=== PATIENT | female | born 1960 | race Caucasian/White ===

== ENCOUNTER 2017-02-20 17:54 | Emergency (ER) | payer BC ==
[2017-02-20] MEDS ORDERED: Sodium Chloride 0.9% 1000 ML 1,000 ML IV STA (18:26)
--- NOTE | 2017-02-20 18:30 | ERPHSYRPT ---
- History of Present Illness Historian: patient Exam Limitations: no limitations Patient Subjective Stated Complaint: lt abd pain intermittent since last monday Triage Nursing Assessment: intermittent pain since last monday-states she feels like it is worse after eating--feels gas-like in nature and is relieved with passing gas. denies n/v. normal bm this morning. pain started after eating at 1500 today and hasnt let up. skin warm and dry Timing/Duration: day(s) (since mon.) Activities at Onset: none Quality: cramping, stabbing Abdominal Pain Onset Location: LLQ Pain Radiation: flank Severity of Pain-Max: mild Severity of Pain-Current: moderate Modifying Factors: Improves With: nothing Associated Symptoms: denies symptoms Previous symptoms: no prior history Hx Tetanus, Diphtheria Vaccination/Date Given: Yes Hx Influenza Vaccination/Date Given: Yes Hx Pneumococcal Vaccination/Date Given: No Immunizations Up to Date: Yes <JAMAR CAT - Last Filed: 02/20/17 18:51> <OZ COX - Last Filed: 02/20/17 20:45> - History of Present Illness Time Seen by Provider: 02/20/17 18:27 Physician History: 56-year-old female without any significant past medical history started having a left lower quadrant abdominal pain which was radiating to her left CVA area. Pain was intermittent cramping and shooting pain . She was complaining of some low-grade fever with chills today morning. She is denying any nausea, vomiting , diarrhea or constipation. She is also denying any blood in her stool or urine on urinary frequency. (JAMAR CAT) Allergies/Adverse Reactions: amoxicillin Allergy (Verified 02/20/17 18:12) codeine Allergy (Verified 02/20/17 18:12) Home Medications: Estradiol 1 mg [Estrace 1 mg] 1 mg PO DAILY 02/20/17 [History] Lorazepam 0.5 mg [Ativan 0.5 MG] 0.5 mg PO TID 02/20/17 [History] PANTOPRAZOLE 40 mg Tablet [Protonix 40MG Tablet] 40 mg PO DAILY 02/20/17 [ History] - Review of Systems Constitutional: No Fever, No Chills Eyes: No Symptoms Ears, Nose, & Throat: No Symptoms Respiratory: No Cough, No Dyspnea Cardiac: No Chest Pain, No Edema, No Syncope Abdominal/Gastrointestinal: Abdominal Pain (LLQ), No Nausea, No Vomiting, No Diarrhea Genitourinary Symptoms: Flank Pain, No Dysuria, No Frequency, No Hematuria, No Hesitancy, No Incontinence, No Urgency, No Urinary Retention Musculoskeletal: No Back Pain, No Neck Pain Skin: No Rash Neurological: No Dizziness, No Focal Weakness, No Sensory Changes Psychological: No Symptoms Endocrine: No Symptoms All Other Systems: Reviewed and Negative <EMORY - Last Filed: 02/20/17 18:51> - Past Medical History Pertinent Past Medical History: Yes Psycho-Social History: Anxiety, Depression - Past Surgical History Past Surgical History: Yes Female Surgical History: Hysterectomy, Tubal Ligation - Social History Smoking Status: Never smoker Exposure to second hand smoke: No Drug Use: none Patient Lives Alone: No <EMORY - Filed: 02/20/17 18:51> - Physical Exam General Appearance: no apparent distress, alert Eye Exam: PERRL/EOMI, eyes nml inspection Ears, Nose, Throat Exam: normal ENT inspection, pharynx normal, moist mucous membranes Neck Exam: normal inspection, non-tender, supple, full range of motion Respiratory Exam: normal breath sounds, lungs clear, No respiratory distress Cardiovascular Exam: regular rate/rhythm, normal heart sounds Gastrointestinal/Abdomen Exam: soft, tenderness (LLQ), No mass Back Exam: normal inspection, normal range of motion, No CVA tenderness, No vertebral tenderness Extremity Exam: normal inspection, normal range of motion, pelvis stable Neurologic Exam: alert, oriented x 3, cooperative, normal mood/affect, nml cerebellar function, sensation nml, No motor deficits Skin Exam: normal color, warm, dry SpO2: 99 Oxygen Delivery: Room Air <EMORY Filed: 02/20/17 18:51> - Nursing Vital Signs Nursing Vital Signs: Initial Vital Signs Temperature 97.5 F 02/20/17 18:05 Pulse Rate 94 H 02/20/17 18:05 Respiratory Rate 18 02/20/17 18:05 Blood Pressure 140/89 02/20/17 18:05 O2 Sat by Pulse Oximetry 99 02/20/17 18:05 Pain Scale Pain Intensity 5 - Course Nursing assessment & vital signs reviewed: Yes <EMORY,JAMAR - Last Filed: 02/20/17 18:51> Ordered Tests: Active Orders 24 hr Category Date Time Status IV Insertion STAT Care 02/20/17 18:30 Active ABDOMEN AND PELVIS W CONTRAST [CT] Stat Exams 02/20/17 19:30 Taken AMYLASE Stat Lab 02/20/17 18:52 Completed CBC W DIFF Stat Lab 02/20/17 18:52 Completed CMP Stat Lab 02/20/17 18:52 Completed CULTURE,URINE Stat Lab 02/20/17 18:59 Received LIPASE Stat Lab 02/20/17 18:52 Completed Lactic Acid Stat Lab 02/20/17 20:30 Completed UA W/ MICROSCOPIC Stat Lab 02/20/17 18:59 Completed Medication Summary Discontinued Medications Generic Name Dose Route Start Last Admin Trade Name Freq PRN Reason Stop Dose Admin Hydromorphone HCl 0.5 mg 02/20/17 19:30 02/20/17 19:35 Hydromorphone 1 Mg/Ml Ampule IV 02/20/17 19:31 0.5 mg STAT ONE Administration Hydromorphone HCl Confirm 02/20/17 19:34 Hydromorphone 1 Mg/Ml Ampule Administered 02/20/17 19:35 Dose 1 mg .ROUTE .STK-MED ONE Sodium Chloride 1,000 mls @ 999 mls/hr 02/20/17 18:26 02/20/17 18:45 Sodium Chloride 0.9% 1000 Ml IV 02/20/17 19:26 999 mls/hr .Q1H1M STA Administration Sodium Chloride Confirm 02/20/17 18:44 Sodium Chloride 0.9% 1000 Ml Administered 02/20/17 18:45 Dose 1,000 mls @ ud .ROUTE .STK-MED ONE Lab/Rad Data: Laboratory Result Diagrams 02/20/17 18:52 02/20/17 18:52 Laboratory Results 02/20/17 02/20/17 02/20/17 Range/Units 20:30 18:59 18:52 WBC (4.0-10.5) K/mm3 RBC (4.1-5.4) M/mm3 Hgb (12.0-16.0) gm/dl Hct (35-47) % MCV (78-100) fl MCH (26-32) pg MCHC (32-36) g/dl RDW (11.5-14.0) % Plt Count (150-450) K/mm3 MPV (6-9.5) fl Gran % (36.0-66.0) % Lymphocytes % (24.0-44.0) % Monocytes % (0.0-12.0) % Eosinophils % (0.00-5.0) % Basophils % (0.0-0.4) % Basophils # (0-0.4) Sodium 142 (136-145) mEq/L Potassium 3.7 (3.5-5.1) mEq/L Chloride 106 (98-107) mEq/L Carbon Dioxide 26.1 (21-32) mEq/L Anion Gap 13.4 (5-15) MEQ/L BUN 17 (9-20) mg/dL Creatinine 0.86 (0.55-1.30) mg/dl Estimated GFR > 60 ML/MIN Glucose 148 H (70-110) MG/DL Lactic Acid 0.9 (0.4-2.0) Calcium 8.7 (8.5-10.1) mg/dL Total Bilirubin 0.10 L (0.2-1.0) mg/dL AST 16 (15-37) U/L ALT 24 (12-78) U/L Alkaline Phosphatase 70 (46-116) U/L Serum Total Protein 7.0 (6.4-8.2) gm/dL Albumin 3.2 L (3.4-5.0) g/dL Amylase 58 (25-115) U/L Lipase 313 (73-393) U/L Ur Collection Type VOID Urine Color YELLOW (YELLOW) Urine Appearance HAZY (CLEAR) Urine pH 7.0 (5-6) Ur Specific Pitman 1.010 (1.005-1.025) Urine Protein NEGATIVE (Negative) Urine Ketones NEGATIVE (NEGATIVE) Urine Blood 50 (0-5) Ernst/ul Urine Nitrite NEGATIVE (NEGATIVE) Urine Bilirubin NEGATIVE (NEGATIVE) Urine Urobilinogen NORMAL (0-1) mg/dL Ur Leukocyte Esterase NEGATIVE (NEGATIVE) Urine Microscopic RBC 5-10 (0-2) /HPF Urine Microscopic WBC 0-2 (0-5) /HPF Ur Epithelial Cells MODERATE (FEW) /HPF Urine Bacteria MODERATE (NEGATIVE) /HPF Urine Mucus SLIGHT (NEGATIVE) /HPF Urine Culture Reflexed YES (NO) Urine Glucose NEGATIVE (NEGATIVE) mg/dL Specimen Received 02/20/17 1850 02/20/17 Range/Units 18:52 WBC 7.6 (4.0-10.5) K/mm3 RBC 4.25 (4.1-5.4) M/mm3 Hgb 12.7 (12.0-16.0) gm/dl Hct 39.9 (35-47) % MCV 93.9 (78-100) fl MCH 29.9 (26-32) pg MCHC 31.8 L (32-36) g/dl RDW 13.6 (11.5-14.0) % Plt Count 310 (150-450) K/mm3 MPV 10.0 H (6-9.5) fl Gran % 61.6 (36.0-66.0) % Lymphocytes % 29.0 (24.0-44.0) % Monocytes % 6.9 (0.0-12.0) % Eosinophils % 2.2 (0.00-5.0) % Basophils % 0.3 (0.0-0.4) % Basophils # 0.02 (0-0.4) Sodium (136-145) mEq/L Potassium (3.5-5.1) mEq/L Chloride (98-107) mEq/L Carbon Dioxide (21-32) mEq/L Anion Gap (5-15) MEQ/L BUN (9-20) mg/dL Creatinine (0.55-1.30) mg/dl Estimated GFR ML/MIN Glucose (70-110) MG/DL Lactic Acid (0.4-2.0) Calcium (8.5-10.1) mg/dL Total Bilirubin (0.2-1.0) mg/dL AST (15-37) U/L ALT (12-78) U/L Alkaline Phosphatase (46-116) U/L Serum Total Protein (6.4-8.2) gm/dL Albumin (3.4-5.0) g/dL Amylase (25-115) U/L Lipase (73-393) U/L Ur Collection Type Urine Color (YELLOW) Urine Appearance (CLEAR) Urine pH (5-6) Ur Specific Pitman (1.005-1.025) Urine Protein (Negative) Urine Ketones (NEGATIVE) Urine Blood (0-5) Ernst/ul Urine Nitrite (NEGATIVE) Urine Bilirubin (NEGATIVE) Urine Urobilinogen (0-1) mg/dL Ur Leukocyte Esterase (NEGATIVE) Urine Microscopic RBC (0-2) /HPF Urine Microscopic WBC (0-5) /HPF Ur Epithelial Cells (FEW) /HPF Urine Bacteria (NEGATIVE) /HPF Urine Mucus (NEGATIVE) /HPF Urine Culture Reflexed (NO) Urine Glucose (NEGATIVE) mg/dL Specimen Received <JAMAR CAT - Last Filed: 02/20/17 18:51> - Progress Counseled pt/family regarding: lab results, diagnosis, need for follow-up, rad results <OZ COX - Last Filed: 02/20/17 20:45> - Progress Progress Note: 02/20/17 19:39 Pt initially seen per Dr Cat. She has prior hysterectomy and BTL. She has off and on abd pain in LLQ for one week. Works at care home. Low grade fever. ALL: amoxil, codiene. PE: LLQ mildly tender with some guarding, no mass, nondistended. Cor reg. Lungs clear. Will get CT to assess for renal stone disease vs diverticulitis. 02/20/17 20:41 CT shows sigmoid diverticulitis without abscess or perforation. Labs reassuring. LActic pending. She agrees for OP management. Will Rx levaquin and flagyl. Discussed no alcohol. Discussed warnings for quinolones. She can not take zithromax or PCN so this seems most reasonable. (OZ COX) <JAMAR CAT - Last Filed: 02/20/17 18:51> - Departure Time of Disposition: 20:42 Departure Disposition: Home Critical Care Time: No <OZ COX - Last Filed: 02/20/17 20:45> - Departure Clinical Impression: Diverticulitis large intestine Qualifiers: Diverticulitis bleeding: without bleeding Diverticulitis complication: without perforation or abscess Qualified Code(s): K57.32 - Diverticulitis of large intestine without perforation or abscess without bleeding Condition: Stable Referrals: LEE ARMENTA MD [Primary Care Provider] - Instructions: Abdominal Pain-Adult, Diverticulitis Additional Instructions: ABDOMINAL PAIN 1. There are several different causes for abdominal pain, some of which may not be able to be identified on initial examination. 2. The important thing to remember is that bodily functions can change in a short period of time. If you notice any of the following symptoms, return to the emergency department or consult your doctor immediately: A. Worsening pain or no improvement in the next 12 hours. B. Increasing, severe abdominal pain C. Blood in stool D. Black stools E. Persistent vomiting F. Fever or chills or other symptoms Rx flagyl twice a day to [facility] Rx levaquin daily to [facility] Diet with no nuts, seeds, berries, hulls. Soft and bland diet for now. Recheck with Dr Armenta in 2-3 days. Return for fever, worsened pain, passing blood, vomiting or concerns. Tylenol as directed for discomfort. Prescriptions: Levofloxacin [Levaquin] 1 tab PO DAILY #6 tablet Metronidazole 500 mg [Flagyl 500 MG] 500 mg PO BID #14 tablet
[2017-02-20] MEDS ORDERED: Sodium Chloride 0.9% 1000 ML 1,000 ML ONE (18:44)
[2017-02-20 18:59] LABS: BASOPHIL % 0.3 % (0.0-0.4); Eosinophil % 2.2 % (0.00-5.0); Granulocytes % 61.6 % (36.0-66.0); Mean Cell Volume 93.9 fl (78-100); Mean Corpuscular Hemoglobin 29.9 pg (26-32); Monocytes % 6.9 % (0.0-12.0); Platelet Count 310 K/mm3 (150-450); Red Blood Count 4.25 M/mm3 (4.1-5.4); Red Cell Distribution Width 13.6 % (11.5-14.0); White Blood Count 7.6 K/mm3 (4.0-10.5)
[2017-02-20] MEDS ORDERED: Hydromorphone 1 mg/ml Ampule IV ONE (19:30)
[2017-02-20 19:32] LABS: ALBUMIN 3.2 g/dL (3.4-5.0); ALKALINE PHOSPHATASE 70 U/L (46-116); ANION GAP 13.4 MEQ/L (5-15); BLOOD UREA NITROGEN 17 mg/dL (9-20); CHLORIDE 106 mEq/L (98-107); Carbon Dioxide 26.1 mEq/L (21-32); Glucose 148 MG/DL (70-110); LIPASE 313 U/L (73-393); Potassium 3.7 mEq/L (3.5-5.1); SGOT/AST 16 U/L (15-37); SGPT/ALT 24 U/L (12-78); SODIUM 142 mEq/L (136-145)
[2017-02-20] MEDS ORDERED: Hydromorphone 1 mg/ml Ampule ONE (19:34)
[2017-02-20 19:56] VITALS: BP 126/50; PULSE 92; O2SAT 97
[2017-02-20 20:05] LABS: Collection Type VOID
[2017-02-20 20:06] LABS: Bilirubin NEGATIVE (NEGATIVE); Blood 50 Ery/ul (0-5); COMPLETE URINE MICROSCOPIC? YES; Glucose NEGATIVE (NEGATIVE); Leukocyte Esterase NEGATIVE (NEGATIVE)
[2017-02-20 20:07] LABS: ADD URINE CULTURE? YES (NO); Bacteria MODERATE /HPF (NEGATIVE); Epithelial Cells MODERATE /HPF (FEW); Mucus SLIGHT /HPF (NEGATIVE); WBC 0-2 /HPF (0-5)
[2017-02-20] MEDS ORDERED: Levofloxacin 500 MG Tablet PO ONE (20:40)
[2017-02-20] MEDS ORDERED: Flagyl 500 MG PO ONE (20:40)
[2017-02-20] MEDS ORDERED: Levofloxacin 250MG Tablet PO ONE (20:40)
[2017-02-20] MEDS ORDERED: Levofloxacin 250MG Tablet ONE (20:51)
[2017-02-20] MEDS ORDERED: Levofloxacin 500 MG Tablet ONE (20:51)
[2017-02-20] MEDS ORDERED: Flagyl 500 MG ONE (20:51)
--- NOTE | 2017-02-21 08:42 | XRAY ---
Indication: Left lower quadrant pain 1 week. Multiple contiguous axial images obtained through the abdomen and pelvis using 80 cc Isovue 370 contrast only. Comparison: None Lung bases demonstrates scattered bibasilar atelectasis/scarring. No infiltrate, consolidation, or effusion. Heart is not enlarged. Moderate sized hiatal hernia with partial intrathoracic stomach. Noncontrasted stomach and bowel loops appear nonobstructed. Mild diffuse scattered colonic fecal debris throughout. Normal appendix. Minimal scattered colonic diverticulosis. At the junction of the descending and sigmoid, there is mild pericolonic stranding favoring diverticulitis. No free fluid/air. Previous hysterectomy. 1.5 cm right lobe hepatic cyst. Remaining liver, gallbladder, pancreas, spleen, adrenal glands, kidneys, ureters, bladder, and aorta appear normal in CT appearance and attenuation. No pathologic retroperitoneal lymphadenopathy. Osseous structures intact with lumbosacral junction degenerative disc disease. Impression: 1. Scattered colonic diverticulosis with mild diverticulitis at the junction of the descending/sigmoid. 2. Incidental fecal stasis, hiatal hernia, and hepatic cyst. Comment: Preliminary interpretation was made by [facility]. No discrepancy. CTDI 17.22
== END 2017-02-20 20:58 | disposition home or self-care (01) ==
LOC: ED 17:54
DX: K57.32 Diverticulitis of large intestine without perforation or abscess without bleeding (principal); R10.32 Left lower quadrant pain; Z79.899 Other long term (current) drug therapy
CPT/HCPCS: 36000; 36415; 74177; 80053; 81000; 82150; 83605; 83690; 85025; 87086; 96360; 96374; 99284; J1170; A9270-GY

== ENCOUNTER 2017-04-13 05:53 | Day surgery (SDC) | payer BC ==
[2017-04-13] MEDS ORDERED: Versed 2 MG/2 ML Injection IV ONE (05:54)
[2017-04-13] MEDS ORDERED: DIPRIVAN 200 MG/20 ML IV ONE (05:54)
[2017-04-13] MEDS ORDERED: Lactated Ringers 1,000 ML IV SCH (06:30)
[2017-04-13 09:27] VITALS: PULSE 70; O2SAT 95
[2017-04-13 09:29] VITALS: BP 132/90
--- NOTE | 2017-04-13 12:00 | OP ---
SURGERY DATE/TIME: 04/13/2017 0700 PREOPERATIVE DIAGNOSIS: Screening colonoscopy. POSTOPERATIVE DIAGNOSIS: Scattered diverticulosis. PROCEDURE: Colonoscopy. SURGEON: Jose Armenta M.D. ANESTHESIA: MAC by Young Puentes CRNA. ESTIMATED BLOOD LOSS: None. SPECIMENS: None. DESCRIPTION OF PROCEDURE: After informed written consent was obtained, the patient was taken to the endoscopy suite. She underwent monitored anesthesia and a digital rectal exam showed normal sphincter tone and no internal lesions. The scope was inserted into the rectum and sequentially the entire colonic mucosa was traversed. The level of cecum was reached and verified with direct visualization of ileocecal valve. Upon withdrawal careful mucosal inspection revealed scattered diverticula but no other lesions or abnormalities. Prep was noted to be good. Prior to withdrawal retroflexion was performed and showed no obvious internal lesions. The scope was removed and the patient was transferred to the recovery room in good condition.
== END 2017-04-13 08:15 | disposition home or self-care (01) ==
LOC: SDC 05:53
PROVIDERS: ATTEND Family Medicine
PROC: 0DJD8ZZ Inspection of Lower Intestinal Tract, Via Natural or Artificial Opening Endoscopic (ICD-10-PCS; principal; 2017-04-13)
DX: Z12.11 Encounter for screening for malignant neoplasm of colon (principal); K57.90 Diverticulosis of intestine, part unspecified, without perforation or abscess without bleeding
CPT/HCPCS: 00812; J2250; J2704

== ENCOUNTER 2023-03-13 10:06 | Day surgery (SDC) | payer BC ==
--- NOTE | 2023-03-13 09:28 | HP ---
DATE OF SURGERY: 03/13/2023 HISTORY OF PRESENT ILLNESS: The patient is a 62-year-old with right upper quadrant pain and shoulder, some nausea and vomiting. Ultrasound showed some gallstones and some wall thickening. PAST MEDICAL HISTORY: Hypertension, reflux, anxiety, depression, hyperlipidemia, heartburn. PAST SURGICAL HISTORY: Hysterectomy and tubal in the past. MEDICATIONS: Famotidine, Fenofibrate, fluoxetine, losartan, estradiol, omeprazole. ALLERGIES: AMOXICILLIN. CODEINE. AZITHROMYCIN. CITALOPRAM. LISINOPRIL. METRONIDAZOLE. SULFA. SULFAMETHOXAZOLE. TRIMETHOPRIM. FAMILY HISTORY: Negative in regards to this problem. SOCIAL HISTORY: No smoking or alcohol abuse. REVIEW OF SYSTEMS: Twelve systems reviewed pertinent for as noted above. No chest pain or palpitations. Other systems negative or noncontributory as above and per preadmission questionnaire. PHYSICAL EXAMINATION: Height 5'1". BMI 30.61. GENERAL: No acute distress. HEENT: Sclerae nonicteric. EOMI. Oral mucous membranes moist. NECK: No JVD. CHEST: Equal excursion, nonlabored breathing. CVS: Regular rate and rhythm. ABDOMEN: Soft, some mild tenderness lower quadrant. No peritoneal signs. EXTREMITIES: No cyanosis or edema. NEURO: Alert, oriented, moving extremities symmetrically. PSYCH: Appropriate mood and affect. SKIN: Dry. IMPRESSION: Acute exacerbation chronic cholecystitis, symptomatic cholelithiasis. I recommend cholecystectomy. Risks and benefits explained in detail including bleeding or infection, risk of trocar injury or hernia, risk of bile leak, bile duct injury, retained stone or sludge possibly requiring further procedure either open or ERCP, general risk of anesthesia, deep venous thrombosis, pulmonary embolism, pneumonia, perioperative risk of aches, pains, bloating, constipation and/or loose stools possibly even chronic in nature and possibly no improvement in preoperative symptoms possibly requiring further work up, studies, endoscopies, other studies or referrals. Will proceed with laparoscopic cholecystectomy possible open as an outpatient. Liver function tests are improved. Will proceed with laparoscopic cholecystectomy possible open as an outpatient. Otherwise, continue medication for depression, reflux, hypertension and lipids as an outpatient.
[2023-03-13] MEDS ORDERED: Lactated Ringers 1,000 ML IV ONE ×2 (10:20→13:04)
[2023-03-13] MEDS ORDERED: CLINDAMYCIN-D5W 900 MG/50 ML*** 900 MG/50 ML BAG IV ONE (10:20)
[2023-03-13] MEDS ORDERED: CLINDAMYCIN-D5W 900 MG/50 ML*** 900 MG/50 ML BAG IV SCH (10:30)
[2023-03-13] MEDS ORDERED: Lactated Ringers 1,000 ML IV SCH (10:30)
[2023-03-13 10:38] VITALS: RESP 18
[2023-03-13] MEDS ORDERED: Sensorcaine 0.25% 10 ML ONE (12:17)
[2023-03-13] MEDS ORDERED: DIPRIVAN 200 MG/20 ML IV ONE (12:36)
[2023-03-13] MEDS ORDERED: Versed 2 MG/2 ML Injection ONE (12:36)
[2023-03-13] MEDS ORDERED: Zemuron 100 MG/10 ML ONE ×2 (12:36→13:30)
[2023-03-13] MEDS ORDERED: SUBLIMAZE 100 MCG/2 ML ONE ×2 (12:36→13:44)
[2023-03-13] MEDS ORDERED: BRIDION 200MG/2ML IV ONE (13:40)
[2023-03-13 14:38] VITALS: TEMP 98.9
[2023-03-13 14:45] VITALS: BP 137/74; PULSE 88; O2SAT 96
--- NOTE | 2023-03-13 14:57 | OP ---
SURGERY DATE/TIME: 03/13/2023 1240 PREOPERATIVE DIAGNOSIS: Acute exacerbation of chronic cholecystitis, symptomatic cholelithiasis. POSTOPERATIVE DIAGNOSIS: Acute exacerbation of chronic cholecystitis, symptomatic cholelithiasis. PROCEDURE: Laparoscopic cholecystectomy. SURGEON: Dr. Codey Russ. ANESTHESIA: General. ESTIMATED BLOOD LOSS: Minimal. INDICATIONS: As noted above. Risks and benefits explained in detail but not limited to and consent obtained. DESCRIPTION OF PROCEDURE AND FINDINGS: The patient was taken to the operating room. General anesthesia induced. Abdomen prepped and draped in usual sterile fashion. A transverse incision made in the supraumbilical area. Fascia grasped, pulled upward. Veress needle inserted and tested with saline. Pneumoperitoneum accomplished insufflating opening pressure of 0-15. An 11 mm bladeless port and camera were inserted without difficulty followed by two - 5 mm right upper quadrant ports and initially a 5 mm epigastric port. There is no evidence of any intraabdominal injury secondary to trocar insertion. The gallbladder is quite chronically inflamed and gallstones. Dissected posterior, lateral to anterior fashion slowly and carefully the cystic duct and infundibular junction isolated until the critical view was obtained both anteriorly and posteriorly. Because of the extensive inflammation, it was felt this would be more secure with 12 clip and stapler given the patulous cystic duct that is significantly chronically inflamed. A 12 port placed in the epigastrium. A 12 clip on the cushion side of the cystic duct and then elected to use the endoscopic stapler to staple across the infundibular side, this is done without difficulty. The main cystic artery is clipped x3 and divided in the usual fashion. The gallbladder is slowly and carefully dissected free from its dense attachments to the liver bed staying directly on the gallbladder wall clipping additional oozing side branches off the cystic artery and the vein directly on the gallbladder wall as necessary. Just prior to releasing from final attachments to the anterior edge of the liver, the liver bed re-inspected. Clips noted in place in the cystic duct and cystic artery stumps. No signs of any active bleeding or bile leakage just extensive inflammation of this concreted in, chronically inflamed gallbladder. It was slowly carefully dissected free staying directly on the gallbladder wall. The gallbladder was released from final attachment to anterior edge of the liver. It was placed in the provided sac, pulled up into the epigastrium where it was decompressed, placed in the provided sac. The fascia spread slightly with a clamp the gallbladder and bag pulled free and passed off. The fascial defect closed with puncture closure device with #1 Vicryl as well as the 11 mm supraumbilical port was also closed with #1 Vicryl under direct vision of the camera. Pneumoperitoneum decompressed. After irrigating copious amount irrigation lateral irrigating subhepatic space until cleat. Clip and staple line were intact on cystic duct stump and intact on cystic artery stump. No signs of any active bleeding or bile leakage. It was felt there was no benefit from drain placement. Pneumoperitoneum decompressed. The wound is irrigated out. Skin incision closed with 4-0 Vicryl. Steri-Strips and sterile dressing applied. The patient tolerated the procedure well. There were no immediate complications. I will talk to the family out in the waiting area.
== END 2023-03-13 15:05 ==
LOC: SDC 10:06
PROVIDERS: ATTEND Surgery
DX: K80.10 Calculus of gallbladder with chronic cholecystitis without obstruction (principal)
CPT/HCPCS: J2250; J2704; J3010